=== PATIENT | female | born 1980 | race Hispanic/Latino ===

== ENCOUNTER 2018-07-29 12:26 | Emergency (ER) | payer OTHER ==
[2018-07-29 13:42] LABS: RAPID GROUP A STREP NEGATIVE (NEGATIVE)
== END 2018-07-29 14:48 | disposition home or self-care (01) ==
LOC: EDH 12:26
DX: J11.1 Influenza due to unidentified influenza virus with other respiratory manifestations (principal)
CPT/HCPCS: 87804; 87880

== ENCOUNTER → 2025-01-07 | Outpatient (CLI) | payer BC ==
--- NOTE | 2025-01-07 10:26 | HMCIMG ---
ULTRASOUND VENOUS DOPPLER, BILATERAL LOWER EXTREMITIES INDICATION: Bilateral lower extremity pain and swelling TECHNIQUE: Routine grayscale and color Doppler ultrasound of the bilateral lower extremity veins performed. COMPARISON: No priors. FINDINGS: The demonstrated veins of the bilateral lower extremity including the common femoral vein, femoral vein, and popliteal vein are associated with normal compressibility, augmentation, and flow. Normal respiratory variation was identified. No evidence for echogenic intraluminal thrombus formation. IMPRESSION: No sonographic evidence for deep venous thrombosis within the bilateral lower extremity veins.
== END | disposition home or self-care (01) ==
LOC: RAH 09:07
PROVIDERS: ATTEND Internal Medicine
DX: I83.93 Asymptomatic varicose veins of bilateral lower extremities (principal); M79.89 Other specified soft tissue disorders; M79.605 Pain in left leg; M79.604 Pain in right leg
CPT/HCPCS: 93970